=== PATIENT | female | born 1995 | race Caucasian/White ===

== ENCOUNTER 2021-01-10 19:35 | Outpatient (CLI) | payer OTHER, MEDICAID ==
[~2021-01-10] VITALS: Ht 149.9 cm; Wt 48.0 kg
[2021-01-10 20:35] LABS: MICROSCOPIC NOT IND
[2021-01-10 21:12] LABS: BASOPHILS % (AUTO) 1 % (0-1); EOSINOPHILS % (AUTO) 0 % (1-7); LYMPHOCYTES % (AUTO) 24 % (22-44); MEAN CORPUSCULAR HEMOGLOBIN 29.7 pg (27.0-34.8); MEAN CORPUSCULAR HGB CONC 34.4 g/dL (32.4-35.8); MEAN PLATELET VOLUME 9.5 fL (7.4-10.4); MONOCYTES % (AUTO) 6 % (2-9); NEUTROPHILS % (AUTO) 68 % (42-75); PLATELET COUNT 192 x10^3/uL (130-400); RED BLOOD COUNT 4.15 x10^6/uL (3.82-5.3); RED CELL DISTRIBUTION WIDTH 14.4 % (9.6-15.2)
[2021-01-10 21:13] LABS: MD NO
[2021-01-10 21:20] LABS: ALBUMIN 2.8 g/dL (3.4-5.0); ANION GAP 11 mmol/L (5-15); CHLORIDE 107 mmol/L (98-107)
[2021-01-10 21:23] LABS: ALANINE AMINOTRANSFERASE 19 U/L (12-78); ALKALINE PHOSPHATASE 85 U/L (45-117); BILIRUBIN,TOTAL 0.5 mg/dL (0.2-1.0); CREATININE 0.41 mg/dL (0.55-1.02); TOTAL PROTEIN 6.4 g/dL (6.4-8.2)
[2021-01-10] MEDS ORDERED: DEXTROSE 5% 1,000 ML IV SCH (22:00)
[2021-01-10] MEDS ORDERED: ONDANSETRON 2MG/ML, 2ML IVPush ONE (22:00)
[2021-01-10] MEDS ORDERED: ONDANSETRON 2MG/ML, 2ML ONE (22:07)
[2021-01-10] MEDS ORDERED: D5%-LACTATED RINGERS 1,000 ML IV SCH ×2 (22:30→23:00)
[2021-01-10] MEDS ORDERED: PLEASE ENTER ALLERGIES MC SCH (22:30)
== END 2021-01-10 23:59 | disposition home or self-care (01) ==
LOC: LDOP 19:35
PROVIDERS: ATTEND Obstetrics & Gynecology
DX: R42 Dizziness and giddiness (principal); M54.9 Dorsalgia, unspecified; R11.0 Nausea
CPT/HCPCS: 36415; 59025; 80053; 81003; 85025; 87086; 96361; 96374; J2405; J7121; 96360

== ENCOUNTER 2021-01-16 23:17 | Observation (INO) | payer OTHER, MEDICAID ==
[~2021-01-16] VITALS: Ht 149.9 cm; Wt 50.0 kg
[2021-01-17] MEDS ORDERED: ZOLPIDEM 5MG TABLET ONE (03:27)
[2021-01-17] MEDS ORDERED: ZOLPIDEM 5MG TABLET PO PRN (03:30)
[2021-01-17] MEDS ORDERED: PNV1COMB PO (03:33)
== END 2021-01-17 03:42 | disposition home or self-care (01) ==
LOC: LDOP 23:17 → LDIP 01-17 01:41
PROVIDERS: ADMIT Obstetrics & Gynecology; ATTEND Obstetrics & Gynecology
DX: O62.9 Abnormality of forces of labor, unspecified (principal); O24.410 Gestational diabetes mellitus in pregnancy, diet controlled; Z3A.38 38 weeks gestation of pregnancy
CPT/HCPCS: 59025; G0378

== ENCOUNTER 2021-01-19 04:39 | Inpatient (IN) | payer OTHER, MEDICAID ==
[~2021-01-19] VITALS: Ht 149.9 cm; Wt 50.0 kg
[~2021-01-19 04:39] MED LIST: PNV1COMB PO
[2021-01-19] MEDS ORDERED: METOCLOPRAMIDE 5 MG/ML, 2ML IVPush PRN (05:30)
[2021-01-19] MEDS ORDERED: ALUMINUM/MAG/SIMETHICONE 30 ML UDC PO PRN (05:30)
[2021-01-19] MEDS ORDERED: CALCIUM CARBONATE 500 MG TAB.CHEW PO PRN ×2 (05:30→09:00)
[2021-01-19] MEDS ORDERED: FENTANYL PF 100 MCG/2ML IVPush PRN (05:30)
[2021-01-19] MEDS ORDERED: TERBUTALINE 1 MG/ML, 1ML SQ PRN (05:30)
[2021-01-19] MEDS ORDERED: OXYTOCIN 30U/ 0.9% NaCL 500ML 500 ML IV ONE (05:30)
[2021-01-19] MEDS ORDERED: ONDANSETRON 2MG/ML, 2ML IVPush PRN (05:30)
[2021-01-19] MEDS ORDERED: SODIUM CITRATE/CITRIC ACID 30 ML UDC PO PRN (05:30)
[2021-01-19] MEDS ORDERED: FENTANYL PF 100 MCG/2ML IV PRN (05:30)
[2021-01-19] MEDS ORDERED: TERBUTALINE 1 MG/ML, 1ML IVPush PRN (05:30)
[2021-01-19] MEDS ORDERED: PENICILLIN GK 5,000,000 UNITS in DEXTROSE 5% 100 ML IVPB ONE (05:30)
[2021-01-19] MEDS ORDERED: LIDOCAINE 1%, 20ML ONE (05:42)
[2021-01-19] MEDS ORDERED: MISOPROSTOL 200 MCG TABLET ONE (05:42)
[2021-01-19] MEDS ORDERED: NEWBORN KIT ONE (05:42)
[2021-01-19] MEDS ORDERED: OXYTOCIN 30U/ 0.9% NaCL 500ML 500 ML ONE (05:42)
[2021-01-19 05:43] LABS: BASOPHILS % (AUTO) 1 % (0-1); EOSINOPHILS % (AUTO) 1 % (1-7); LYMPHOCYTES % (AUTO) 25 % (22-44); MEAN CORPUSCULAR HEMOGLOBIN 30.1 pg (27.0-34.8); MEAN CORPUSCULAR HGB CONC 34.3 g/dL (32.4-35.8); MEAN PLATELET VOLUME 9.3 fL (7.4-10.4); MONOCYTES % (AUTO) 7 % (2-9); NEUTROPHILS % (AUTO) 66 % (42-75); PLATELET COUNT 202 x10^3/uL (130-400); RED BLOOD COUNT 4.21 x10^6/uL (3.82-5.3); RED CELL DISTRIBUTION WIDTH 14.5 % (9.6-15.2)
[2021-01-19 05:46] LABS: MD NO
[2021-01-19 05:59] VITALS: BP 116/77
[2021-01-19] MEDS ORDERED: PLEASE ENTER HEIGHT AND WEIGHT MC SCH ×2 (06:00)
[2021-01-19] MEDS ORDERED: BUPIVACAINE 0.25% ONE (06:01)
[2021-01-19] MEDS ORDERED: FENTANYL/BUPIV./NS/PF 250 ML EPIDCONT ONE (06:02)
[2021-01-19] MEDS ORDERED: LACTATED RINGERS 1,000 ML IV SCH ×2 (06:30→07:00)
[2021-01-19] MEDS ORDERED: LACTATED RINGERS 1,000 ML IVBOLUS PRN (07:00)
[2021-01-19] MEDS ORDERED: FENTANYL/BUPIV./NS/PF 250 ML EPIDCONT SCH (07:00)
[2021-01-19] MEDS ORDERED: EPHEDRINE 50 MG/ML, 1ML IVPush PRN (07:00)
[2021-01-19] MEDS ORDERED: DOCUSATE 100 MG CAPSULE PO PRN (09:00)
[2021-01-19] MEDS ORDERED: OXYTOCIN 30U/ 0.9% NaCL 500ML 500 ML IV SCH ×2 (09:00)
[2021-01-19] MEDS ORDERED: BISACODYL 10 MG SUPP PR PRN (09:00)
[2021-01-19] MEDS ORDERED: HYDROcodone/APAP 5/325 TABLET PO PRN (09:00)
[2021-01-19] MEDS ORDERED: IBUPROFEN 600 MG TABLET PO PRN (09:00)
[2021-01-19] MEDS ORDERED: SIMETHICONE 80 MG CHEW TAB PO PRN (09:00)
[2021-01-19] MEDS ORDERED: MISOPROSTOL 200 MCG TABLET PR PRN (09:00)
[2021-01-19] MEDS ORDERED: ACETAMINOPHEN 325 MG TABLET PO PRN ×3 (09:00)
[2021-01-19] MEDS: PRENATAL VIT/IRON/FA 1 EACH TABLET PO SCH (09:00)
[2021-01-19] MEDS ORDERED: PENICILLIN GK 2,500,000 UNITS in DEXTROSE 5% 100 ML IVPB SCH (09:30)
[2021-01-19 12:00] VITALS: BP 114/73
[2021-01-19 15:50] LABS: BASOPHILS % (AUTO) 2 % (0-1); EOSINOPHILS % (AUTO) 0 % (1-7); LYMPHOCYTES % (AUTO) 16 % (22-44); MEAN CORPUSCULAR HEMOGLOBIN 29.9 pg (27.0-34.8); MEAN CORPUSCULAR HGB CONC 34.2 g/dL (32.4-35.8); MEAN PLATELET VOLUME 9.2 fL (7.4-10.4); MONOCYTES % (AUTO) 7 % (2-9); NEUTROPHILS % (AUTO) 76 % (42-75); PLATELET COUNT 181 x10^3/uL (130-400); RED BLOOD COUNT 4.01 x10^6/uL (3.82-5.3); RED CELL DISTRIBUTION WIDTH 14.3 % (9.6-15.2)
[2021-01-19 15:52] LABS: MD NO
[2021-01-19 16:00] VITALS: BP 104/70
[2021-01-19 20:00] VITALS: BP 113/72
[2021-01-20] VITALS: BP 116/81
[2021-01-20 04:29] VITALS: BP 114/76
[2021-01-20 08:15] VITALS: BP 108/72
[2021-01-20] MEDS: PRENATAL VIT/IRON/FA 1 EACH TABLET PO SCH (09:00)
[2021-01-20] MEDS ORDERED: DOCU-131 PO (13:48)
== END 2021-01-20 14:30 | disposition home or self-care (01) | DRG 807 ==
LOC: LDOP 04:39 → LDIP 05:08 → 2NW 10:47
PROVIDERS: ADMIT Obstetrics & Gynecology; ATTEND Obstetrics & Gynecology
PROC: 0KQM0ZZ Repair Perineum Muscle, Open Approach (ICD-10-PCS; principal; 2021-01-19)
PROC: 10E0XZZ Delivery of Products of Conception, External Approach (ICD-10-PCS; 2021-01-19)
PROC: 3E0R3BZ Introduction of Anesthetic Agent into Spinal Canal, Percutaneous Approach (ICD-10-PCS; 2021-01-19)
PROC: 00HU33Z Insertion of Infusion Device into Spinal Canal, Percutaneous Approach (ICD-10-PCS; 2021-01-19)
DX: O24.420 Gestational diabetes mellitus in childbirth, diet controlled (principal); Z37.0 Single live birth; O69.81X0 Labor and delivery complicated by cord around neck, without compression, not applicable or unspecified; O70.1 Second degree perineal laceration during delivery; O99.344 Other mental disorders complicating childbirth; O99.52 Diseases of the respiratory system complicating childbirth; J45.909 Unspecified asthma, uncomplicated; O99.824 Streptococcus B carrier state complicating childbirth; F32.9 Major depressive disorder, single episode, unspecified; F41.9 Anxiety disorder, unspecified; Z3A.38 38 weeks gestation of pregnancy; Z88.8 Allergy status to other drugs, medicaments and biological substances
CPT/HCPCS: 36415; 82962; 85025; 86592; 86850; 86900; 89060; G0378; J2540; J3010; J2590; J7120; Q0114